=== PATIENT | male | born 1955 | race Two or more races ===

== ENCOUNTER 2021-03-18 21:44 | Inpatient (IN) | payer OTHER ==
[~2021-03-18] VITALS: Ht 177.8 cm; Wt 82.0 kg
[2021-03-19] VITALS (7 sets, daily range): BP systolic 139–157; BP diastolic 70–91
[2021-03-19 00:43] LABS: Basophils # (auto) 0 10 ^3/uL (0-0.2); Basophils % (auto) 0.3 % (0.0-2.0); Eosinophils # (auto) 0 10 ^3/uL (0-0.8); Eosinophils % (auto) 0.7 % (0.0-7.0); Hematocrit 25.2 % (41.0-53.0); Hemoglobin 8.6 g/dL (13.5-17.5); Lymphocytes # (auto) 0.3 10 ^3/uL (0.4-5.4); Lymphocytes % (auto) 4.1 % (10.0-50.0); Mean Corpuscular Hemoglobin 30.5 pg (28.0-32.0); Mean Corpuscular Volume 89.6 fL (80.0-100.0); Monocytes # (auto) 0.3 10 ^3/uL (0-1.3); Monocytes % (auto) 4.8 % (0.0-12.0); Neutrophils # (auto) 6.2 10 ^3/uL (1.6-8.6); Neutrophils % (auto) 90.1 % (37.0-80.0); Nucleated Red Blood Cells % 0.1 %; Red Blood Cells 2.81 10^6/uL (4.5-5.90); Red Cell Distribution Width 14.6 % (11.8-14.3); White Blood Cell 6.9 10^3/uL (4.4-10.8)
[2021-03-19 01:00] LABS: Albumin 3.5 g/dL (3.4-5.0); Calcium 8.5 mg/dL (8.5-10.1)
[2021-03-19 01:29] LABS: BUN/Creatinine Ratio 11.1
[2021-03-19 01:32] LABS: Bilirubin, Total 0.4 mg/dL (0.2-1.0)
[2021-03-19 01:37] LABS: Potassium 5.8 mmol/L (3.5-5.1)
[2021-03-19] MEDS ORDERED: AZITHROMYCIN 500MG/ 250ML 250 ML IV ONE (02:00)
[2021-03-19] MEDS ORDERED: FUROSEMIDE 20 MG/2 ML VIAL IV ONE (02:00)
[2021-03-19] MEDS ORDERED: ALBUTEROL SULF 2.5 MG/0.5ML(0.5%) NEB SOLN NEB ONE (02:00)
[2021-03-19] MEDS ORDERED: InsuLIN REG 1unit/0.01ml Soln (100units/ml) IV ONE ×2 (02:00→20:00)
[2021-03-19] MEDS ORDERED: SODIUM BICARBONATE 8.4% INJ 50ML SYRINGE IV ONE (02:00)
[2021-03-19] MEDS ORDERED: SODIUM ZIRCONIUM CYCL 10 GM PAK PO ONE ×3 (02:00→10:30)
[2021-03-19] MEDS ORDERED: cefTRIAXone 1GM/50ML D5W 50 ML IV ONE (02:00)
[2021-03-19] MEDS ORDERED: DEXTROSE (50%) 50ML SYRG IV ONE ×2 (02:00→20:00)
[2021-03-19] MEDS ORDERED: CALCIUM GLUC 1,000mg/50ml-NS 50 ML IV ONE ×2 (02:00→20:00)
[2021-03-19] MEDS ORDERED: ACETAMINOPHEN 500 MG TAB PO PRN (03:15)
[2021-03-19] MEDS ORDERED: ONDANSETRON HCL 4 MG/2 ML VIAL IV PRN (03:15)
[2021-03-19] MEDS ORDERED: cloNIDine HCL 0.1 MG TAB PO PRN (03:15)
[2021-03-19] MEDS ORDERED: NITROGLYCERIN 0.4 MG SL TAB SL PRN (03:15)
[2021-03-19] MEDS ORDERED: MORPHINE SULFATE INJECTION 2 MG/ML SYRG IV PRN (03:15)
[2021-03-19 04:51] LABS: Potassium 5.6 mmol/L (3.5-5.1)
[2021-03-19] MEDS ORDERED: B-CO-5 PO (06:29)
[2021-03-19] MEDS ORDERED: AMLO-489 PO (06:29)
[2021-03-19 09:10] LABS: Potassium 5.8 mmol/L (3.5-5.1)
[2021-03-19] MEDS ORDERED: amLODIPine BESYLATE 5 MG TAB PO SCH (10:00)
[2021-03-19] MEDS ORDERED: PANTOPRAZOLE 40 MG TAB PO SCH (10:00)
[2021-03-19] MEDS ORDERED: FUROSEMIDE 40 MG/4 ML VIAL IV ONE (10:30)
[2021-03-19] MEDS: cefTRIAXone 1GM/50ML D5W 50 ML IV SCH (11:01)
[2021-03-19] MEDS: DexAMETHasone SOD PHOS 10MG/1ML VIAL INJ IV SCH (11:02)
[2021-03-19] MEDS: ZINC SULFATE 220mg CAP or TAB PO SCH (11:03)
[2021-03-19] MEDS: CHOLECALCIFEROL (VITD3) 2,000 UNIT CAP/TAB PO SCH (11:05)
[2021-03-19] MEDS: ASCORBIC ACID 1,000 MG TAB PO SCH (11:05)
[2021-03-19] MEDS: ENOXAPARIN SOD 40 MG/0.4 ML SYRINGE SC SCH (11:06)
[2021-03-19] MEDS ORDERED: IVERMECTIN 3 MG TAB PO ONE (11:42)
[2021-03-19] MEDS ORDERED: DEXTROSE (50%) 50ML SYRG IV PRN (11:45)
[2021-03-19] MEDS ORDERED: ASPirin-EC 81 mg tab PO ONE (11:45)
[2021-03-19] MEDS: ACCU-CHEK COMFORT CURVE STRIP VI SCH ×3 (12:00→23:58)
[2021-03-19] MEDS: InsuLIN REG 1unit/0.01ml Soln (100units/ml) SC SCH ×2 (13:00→18:00)
[2021-03-19] MEDS: AZITHROMYCIN 500MG/ 250ML 250 ML IV SCH (13:00)
[2021-03-19] MEDS ORDERED: SODIUM BICARBONATE 8.4 % INJ 50ML VIAL IV ONE ×2 (15:00→20:00)
[2021-03-19] MEDS: SODIUM ZIRCONIUM CYCL 10 GM PAK PO SCH ×2 (15:41→21:03)
[2021-03-19 19:27] LABS: Potassium 5.8 mmol/L (3.5-5.1)
[2021-03-19] MEDS: ALBUTEROL SULF HFA 90MCG INH 200DOSE IN PRN ×2 (20:20→23:25)
[2021-03-19] MEDS: ATORVASTATIN 20 MG TAB PO SCH (21:02)
[2021-03-19] MEDS: METOPROLOL TARTRATE 25 MG TAB PO SCH (21:29)
[2021-03-19] MEDS: BUDESONIDE (INHALATION) 180 MCG IH IN SCH (22:00)
[2021-03-19 22:55] LABS: BUN/Creatinine Ratio 11.2; Calcium 8.3 mg/dL (8.5-10.1)
[2021-03-19 22:57] LABS: Potassium 5.7 mmol/L (3.5-5.1)
[2021-03-19] MEDS: TEMAZEPAM 15 MG CAP PO PRN (23:48)
[2021-03-20] MEDS: InsuLIN REG 1unit/0.01ml Soln (100units/ml) SC SCH ×5 (00:07→23:27)
[2021-03-20] MEDS ORDERED: SODIUM BICARBONATE 8.4 % INJ 50ML VIAL IV ONE ×3 (03:45→06:30)
[2021-03-20 05:07] VITALS: BP 130/69
[2021-03-20] MEDS: BUDESONIDE (INHALATION) 180 MCG IH IN SCH ×2 (05:29→22:00)
[2021-03-20] MEDS: ALBUTEROL SULF HFA 90MCG INH 200DOSE IN PRN (05:29)
[2021-03-20] MEDS: SODIUM ZIRCONIUM CYCL 10 GM PAK PO SCH ×2 (06:00→14:00)
[2021-03-20] MEDS: ACCU-CHEK COMFORT CURVE STRIP VI SCH ×4 (06:21→23:16)
[2021-03-20 06:22] LABS: Basophils # (auto) 0 10 ^3/uL (0-0.2); Eosinophils # (auto) 0 10 ^3/uL (0-0.8); Lymphocytes # (auto) 0.2 10 ^3/uL (0.4-5.4); Monocytes # (auto) 0.2 10 ^3/uL (0-1.3); Red Blood Cells 2.56 10^6/uL (4.5-5.90)
[2021-03-20 06:25] LABS: Basophils % (auto) 0.4 % (0.0-2.0); Hematocrit 23.5 % (41.0-53.0); Hemoglobin 7.9 g/dL (13.5-17.5); Lymphocytes % (auto) 3.2 % (10.0-50.0); Mean Corpuscular Hemoglobin 30.8 pg (28.0-32.0); Mean Corpuscular Hgb Conc. 33.5 g/dL (32.0-36.0); Mean Corpuscular Volume 91.7 fL (80.0-100.0); Monocytes % (auto) 2.3 % (0.0-12.0); Neutrophils # (auto) 6.7 10 ^3/uL (1.6-8.6); Neutrophils % (auto) 94.1 % (37.0-80.0); Nucleated Red Blood Cells % 0.1 %; Red Cell Distribution Width 14.4 % (11.8-14.3); White Blood Cell 7.1 10^3/uL (4.4-10.8)
[2021-03-20 06:49] LABS: INR 1.16 (0.9-1.15); Partial Thromboplastin Time 33.6 sec (23.6-33.0)
[2021-03-20] MEDS ORDERED: SODIUM CHL 0.9% 1000 ML BAG XX ONE (07:00)
[2021-03-20 07:02] LABS: Albumin 2.8 g/dL (3.4-5.0); BUN/Creatinine Ratio 11.1; Bilirubin, Total 0.3 mg/dL (0.2-1.0); CRP High Sensitivity 7.55 mg/dL (< 0.3); Calcium 8.2 mg/dL (8.5-10.1); Total Protein 6.3 g/dL (6.4-8.2)
[2021-03-20 08:26] LABS: Potassium 5.9 mmol/L (3.5-5.1)
[2021-03-20 09:00] VITALS: BP 149/72
[2021-03-20] MEDS: cefTRIAXone 1GM/50ML D5W 50 ML IV SCH (09:15)
[2021-03-20] MEDS: DexAMETHasone SOD PHOS 10MG/1ML VIAL INJ IV SCH (09:56)
[2021-03-20] MEDS: AZITHROMYCIN 500MG/ 250ML 250 ML IV SCH (09:58)
[2021-03-20] MEDS: ENOXAPARIN SOD 40 MG/0.4 ML SYRINGE SC SCH (09:58)
[2021-03-20] MEDS: CHOLECALCIFEROL (VITD3) 2,000 UNIT CAP/TAB PO SCH (10:00)
[2021-03-20] MEDS ORDERED: FUROSEMIDE 20 MG/2 ML VIAL IV SCH (10:00)
[2021-03-20] MEDS: ZINC SULFATE 220mg CAP or TAB PO SCH (10:00)
[2021-03-20] MEDS: METOPROLOL TARTRATE 25 MG TAB PO SCH ×2 (10:00→21:55)
[2021-03-20] MEDS: IVERMECTIN 3 MG TAB PO SCH (10:00)
[2021-03-20] MEDS: ASPirin-EC 81 mg tab PO SCH (10:00)
[2021-03-20] MEDS: ASCORBIC ACID 1,000 MG TAB PO SCH (10:00)
[2021-03-20] MEDS ORDERED: REMDESIVIR PER PHARMACY 0 ML IV SCH (11:00)
[2021-03-20 12:58] VITALS: BP 143/75
[2021-03-20] MEDS ORDERED: REMDESIVIR 200 MG in NS 210ml LOADING DOSE ADULT IV ONE (15:00)
[2021-03-20] MEDS: LORazepam 2MG/ML-1ML VIAL IV PRN (16:39)
[2021-03-20 17:00] VITALS: BP 130/77
[2021-03-20] MEDS: FUROSEMIDE 100 MG/10ML VIAL IV SCH (17:43)
[2021-03-20] MEDS ORDERED: EPOETIN ALFA-EPBX 10,000 UNIT/1ML VIAL SC ONE (21:00)
[2021-03-20] MEDS: ATORVASTATIN 20 MG TAB PO SCH (21:53)
[2021-03-20 22:00] VITALS: BP 157/88
[2021-03-21 05:00] VITALS: BP 152/82
[2021-03-21 05:30] LABS: Potassium 4.4 mmol/L (3.5-5.1)
[2021-03-21 05:44] LABS: Albumin 2.6 g/dL (3.4-5.0); BUN/Creatinine Ratio 10.9; Bilirubin, Total 0.5 mg/dL (0.2-1.0); Calcium 7.9 mg/dL (8.5-10.1); Total Protein 5.7 g/dL (6.4-8.2)
[2021-03-21] MEDS: ACCU-CHEK COMFORT CURVE STRIP VI SCH (05:45)
[2021-03-21] MEDS: InsuLIN REG 1unit/0.01ml Soln (100units/ml) SC SCH (06:00)
[2021-03-21] MEDS: FUROSEMIDE 100 MG/10ML VIAL IV SCH ×2 (06:09→18:14)
[2021-03-21 08:00] VITALS: BP 152/82
[2021-03-21] MEDS: BUDESONIDE (INHALATION) 180 MCG IH IN SCH (08:46)
[2021-03-21] MEDS: ALBUTEROL SULF HFA 90MCG INH 200DOSE IN PRN (08:46)
[2021-03-21] MEDS: cefTRIAXone 1GM/50ML D5W 50 ML IV SCH (08:47)
[2021-03-21] MEDS: METOPROLOL TARTRATE 25 MG TAB PO SCH ×2 (08:48→22:34)
[2021-03-21] MEDS: DexAMETHasone SOD PHOS 10MG/1ML VIAL INJ IV SCH (08:48)
[2021-03-21] MEDS: ENOXAPARIN SOD 40 MG/0.4 ML SYRINGE SC SCH (08:49)
[2021-03-21 09:05] VITALS: BP 158/83
[2021-03-21] MEDS: AZITHROMYCIN 500MG/ 250ML 250 ML IV SCH (10:46)
[2021-03-21] MEDS ORDERED: ALBUTEROL SULF 2.5 MG/0.5ML(0.5%) NEB SOLN NEB PRN (12:00)
[2021-03-21 13:24] VITALS: BP 153/84
[2021-03-21] MEDS ORDERED: TPN PER PHARMACY 0 ML IV SCH (14:15)
[2021-03-21 15:18] LABS: Magnesium 2.6 mg/dL (1.6-2.6); Phosphorus 6.5 mg/dL (2.5-4.90)
[2021-03-21] MEDS: ZINC SULFATE 220mg CAP or TAB PO SCH (16:01)
[2021-03-21] MEDS: CHOLECALCIFEROL (VITD3) 2,000 UNIT CAP/TAB PO SCH (16:02)
[2021-03-21] MEDS: IVERMECTIN 3 MG TAB PO SCH (16:02)
[2021-03-21] MEDS: ASCORBIC ACID 1,000 MG TAB PO SCH (16:02)
[2021-03-21] MEDS: ASPirin-EC 81 mg tab PO SCH (16:02)
[2021-03-21] MEDS: SODIUM ZIRCONIUM CYCL 10 GM PAK PO SCH (16:43)
[2021-03-21] MEDS: REMDESIVIR 100mg 100 MG in SODIUM CHL 0.9% 230 ML IV SCH (16:43)
[2021-03-21 17:04] VITALS: BP 134/95
[2021-03-21] MEDS ORDERED: DEXTROSE (50%) 50ML SYRG IV SCH (18:00)
[2021-03-21] MEDS ORDERED: ACCU-CHEK COMFORT CURVE STRIP VI SCH (18:00)
[2021-03-21] MEDS ORDERED: BUDESONIDE (INHALATION) 0.5 MG/2 ML NEB NEB SCH (18:00)
[2021-03-21] MEDS ORDERED: InsuLIN REG 1unit/0.01ml Soln (100units/ml) SC SCH (18:00)
[2021-03-21] MEDS ORDERED: DEXTROSE (50%) 50ML SYRG IV PRN (18:30)
[2021-03-21 22:00] VITALS: BP 149/80
[2021-03-21] MEDS: ATORVASTATIN 20 MG TAB PO SCH (22:33)
[2021-03-22] MEDS: ACCU-CHEK COMFORT CURVE STRIP VI SCH ×4 (00:06→17:40)
[2021-03-22] MEDS: InsuLIN REG 1unit/0.01ml Soln (100units/ml) SC SCH ×4 (00:07→17:41)
[2021-03-22 05:00] VITALS: BP 145/70
[2021-03-22] MEDS: FUROSEMIDE 100 MG/10ML VIAL IV SCH ×2 (05:53→17:40)
[2021-03-22 06:30] LABS: Potassium 4.4 mmol/L (3.5-5.1)
[2021-03-22 06:41] LABS: Albumin 2.5 g/dL (3.4-5.0); BUN/Creatinine Ratio 12.7; Bilirubin, Total 0.4 mg/dL (0.2-1.0); Calcium 8.2 mg/dL (8.5-10.1); Total Protein 5.5 g/dL (6.4-8.2)
[2021-03-22 08:00] VITALS: BP 145/70
[2021-03-22 08:58] VITALS: BP 144/74
[2021-03-22] MEDS: ASPirin-EC 81 mg tab PO SCH (09:24)
[2021-03-22] MEDS: ZINC SULFATE 220mg CAP or TAB PO SCH (09:24)
[2021-03-22] MEDS: DexAMETHasone SOD PHOS 10MG/1ML VIAL INJ IV SCH (09:24)
[2021-03-22] MEDS: cefTRIAXone 1GM/50ML D5W 50 ML IV SCH (09:24)
[2021-03-22] MEDS: ENOXAPARIN SOD 40 MG/0.4 ML SYRINGE SC SCH (09:25)
[2021-03-22] MEDS: ASCORBIC ACID 1,000 MG TAB PO SCH (09:25)
[2021-03-22] MEDS: SODIUM ZIRCONIUM CYCL 10 GM PAK PO SCH (09:25)
[2021-03-22] MEDS: IVERMECTIN 3 MG TAB PO SCH (09:25)
[2021-03-22] MEDS: CHOLECALCIFEROL (VITD3) 2,000 UNIT CAP/TAB PO SCH (09:25)
[2021-03-22] MEDS: METOPROLOL TARTRATE 25 MG TAB PO SCH ×2 (09:26→21:51)
[2021-03-22] MEDS ORDERED: AZITHROMYCIN 250 MG TAB PO ONE (10:15)
[2021-03-22] MEDS: ALBUTEROL SULF HFA 90MCG INH 200DOSE IN PRN (11:47)
[2021-03-22] MEDS: BUDESONIDE (INHALATION) 180 MCG IH IN SCH ×2 (11:48→21:53)
[2021-03-22 12:25] VITALS: BP 136/72
[2021-03-22] MEDS: REMDESIVIR 100mg 100 MG in SODIUM CHL 0.9% 230 ML IV SCH (15:20)
[2021-03-22 17:25] VITALS: BP 143/76
[2021-03-22] MEDS: ATORVASTATIN 20 MG TAB PO SCH (21:51)
[2021-03-22 22:00] VITALS: BP 152/83
[2021-03-23] MEDS: InsuLIN REG 1unit/0.01ml Soln (100units/ml) SC SCH ×4 (00:12→18:36)
[2021-03-23] MEDS: ACCU-CHEK COMFORT CURVE STRIP VI SCH ×4 (00:12→18:28)
[2021-03-23 05:00] VITALS: BP 164/85
[2021-03-23 05:47] LABS: Basophils # (auto) 0 10 ^3/uL (0-0.2); Eosinophils # (auto) 0 10 ^3/uL (0-0.8); Hemoglobin 7.6 g/dL (13.5-17.5); Lymphocytes # (auto) 0.2 10 ^3/uL (0.4-5.4); Lymphocytes % (auto) 2.5 % (10.0-50.0); Monocytes # (auto) 0.2 10 ^3/uL (0-1.3); Monocytes % (auto) 3.3 % (0.0-12.0); Neutrophils # (auto) 6.4 10 ^3/uL (1.6-8.6); Red Cell Distribution Width 14.1 % (11.8-14.3); White Blood Cell 6.8 10^3/uL (4.4-10.8)
[2021-03-23 05:50] LABS: Hematocrit 22.2 % (41.0-53.0); Mean Corpuscular Hgb Conc. 34.3 g/dL (32.0-36.0); Mean Corpuscular Volume 87.4 fL (80.0-100.0); Neutrophils % (auto) 94.2 % (37.0-80.0); Red Blood Cells 2.54 10^6/uL (4.5-5.90)
[2021-03-23] MEDS: FUROSEMIDE 100 MG/10ML VIAL IV SCH ×2 (05:50→18:28)
[2021-03-23 05:55] LABS: Albumin 2.3 g/dL (3.4-5.0); Calcium 7.2 mg/dL (8.5-10.1)
[2021-03-23 06:04] LABS: BUN/Creatinine Ratio 15.1; Bilirubin, Total 0.4 mg/dL (0.2-1.0); CRP High Sensitivity 12.5 mg/dL (< 0.3)
[2021-03-23] MEDS: BUDESONIDE (INHALATION) 180 MCG IH IN SCH ×2 (06:17→19:44)
[2021-03-23] MEDS ORDERED: SODIUM CHL 0.9% 1000 ML BAG XX ONE (07:00)
[2021-03-23 08:30] VITALS: BP 152/83
[2021-03-23] MEDS: ASCORBIC ACID 1,000 MG TAB PO SCH (09:58)
[2021-03-23] MEDS: ZINC SULFATE 220mg CAP or TAB PO SCH (09:58)
[2021-03-23] MEDS: AZITHROMYCIN 250 MG TAB PO SCH (09:58)
[2021-03-23] MEDS: DexAMETHasone SOD PHOS 10MG/1ML VIAL INJ IV SCH (09:59)
[2021-03-23] MEDS: SODIUM ZIRCONIUM CYCL 10 GM PAK PO SCH (10:00)
[2021-03-23] MEDS: METOPROLOL TARTRATE 25 MG TAB PO SCH ×2 (10:00→22:00)
[2021-03-23] MEDS: ENOXAPARIN SOD 40 MG/0.4 ML SYRINGE SC SCH (10:00)
[2021-03-23] MEDS: IVERMECTIN 3 MG TAB PO SCH (10:00)
[2021-03-23] MEDS: ASPirin-EC 81 mg tab PO SCH (10:01)
[2021-03-23] MEDS: CHOLECALCIFEROL (VITD3) 2,000 UNIT CAP/TAB PO SCH (10:01)
[2021-03-23] MEDS: cefTRIAXone 1GM/50ML D5W 50 ML IV SCH (10:01)
[2021-03-23 12:30] VITALS: BP 151/78
[2021-03-23 14:05] LABS: Hepatitis C Antibody Negative (Negative)
[2021-03-23] MEDS: REMDESIVIR 100mg 100 MG in SODIUM CHL 0.9% 230 ML IV SCH (16:15)
[2021-03-23 16:43] VITALS: BP 159/71
[2021-03-23] MEDS: ALBUTEROL SULF HFA 90MCG INH 200DOSE IN PRN (19:44)
[2021-03-23] MEDS ORDERED: EPOETIN ALFA-EPBX 10,000 UNIT/1ML VIAL SC ONE (21:00)
[2021-03-23 22:00] VITALS: BP 138/75
[2021-03-23] MEDS: ATORVASTATIN 20 MG TAB PO SCH (22:00)
[2021-03-23] MEDS: TEMAZEPAM 15 MG CAP PO PRN (23:07)
[2021-03-24] MEDS: ACCU-CHEK COMFORT CURVE STRIP VI SCH ×4 (00:08→18:19)
[2021-03-24] MEDS: InsuLIN REG 1unit/0.01ml Soln (100units/ml) SC SCH ×4 (00:10→18:19)
[2021-03-24 05:00] VITALS: BP 157/78
[2021-03-24] MEDS: BUDESONIDE (INHALATION) 180 MCG IH IN SCH ×2 (05:52→20:19)
[2021-03-24] MEDS: ALBUTEROL SULF HFA 90MCG INH 200DOSE IN PRN ×2 (05:52→20:19)
[2021-03-24 06:10] LABS: Basophils # (auto) 0 10 ^3/uL (0-0.2); Eosinophils # (auto) 0 10 ^3/uL (0-0.8); Hemoglobin 7.2 g/dL (13.5-17.5); Lymphocytes # (auto) 0.2 10 ^3/uL (0.4-5.4); Nucleated Red Blood Cells % 0.1 %; White Blood Cell 5.1 10^3/uL (4.4-10.8)
[2021-03-24 06:14] LABS: Basophils % (auto) 0.1 % (0.0-2.0); Hematocrit 20.4 % (41.0-53.0); Lymphocytes % (auto) 3.9 % (10.0-50.0); Mean Corpuscular Hemoglobin 30.8 pg (28.0-32.0); Mean Corpuscular Hgb Conc. 35.3 g/dL (32.0-36.0); Mean Corpuscular Volume 87.2 fL (80.0-100.0); Monocytes # (auto) 0.3 10 ^3/uL (0-1.3); Monocytes % (auto) 5.3 % (0.0-12.0); Neutrophils # (auto) 4.6 10 ^3/uL (1.6-8.6); Neutrophils % (auto) 90.7 % (37.0-80.0); Red Blood Cells 2.34 10^6/uL (4.5-5.90); Red Cell Distribution Width 13.8 % (11.8-14.3)
[2021-03-24] MEDS: FUROSEMIDE 100 MG/10ML VIAL IV SCH ×2 (06:24→18:20)
[2021-03-24 06:26] LABS: Potassium 3.6 mmol/L (3.5-5.1)
[2021-03-24 06:36] LABS: Albumin 2.2 g/dL (3.4-5.0); BUN/Creatinine Ratio 14.6; Bilirubin, Total 0.3 mg/dL (0.2-1.0); Calcium 7.1 mg/dL (8.5-10.1); Total Protein 4.7 g/dL (6.4-8.2)
[2021-03-24 09:00] VITALS: BP 154/82
[2021-03-24] MEDS: SODIUM ZIRCONIUM CYCL 10 GM PAK PO SCH (10:00)
[2021-03-24] MEDS: cefTRIAXone 1GM/50ML D5W 50 ML IV SCH (11:14)
[2021-03-24] MEDS: ASCORBIC ACID 1,000 MG TAB PO SCH (11:15)
[2021-03-24] MEDS: ZINC SULFATE 220mg CAP or TAB PO SCH (11:15)
[2021-03-24] MEDS: DexAMETHasone SOD PHOS 10MG/1ML VIAL INJ IV SCH (11:15)
[2021-03-24] MEDS: CHOLECALCIFEROL (VITD3) 2,000 UNIT CAP/TAB PO SCH (11:15)
[2021-03-24] MEDS: ASPirin-EC 81 mg tab PO SCH (11:15)
[2021-03-24] MEDS: METOPROLOL TARTRATE 25 MG TAB PO SCH ×2 (11:16→21:10)
[2021-03-24] MEDS: ENOXAPARIN SOD 40 MG/0.4 ML SYRINGE SC SCH (11:16)
[2021-03-24] MEDS: AZITHROMYCIN 250 MG TAB PO SCH (12:16)
[2021-03-24 13:00] VITALS: BP 146/80
[2021-03-24] MEDS: REMDESIVIR 100mg 100 MG in SODIUM CHL 0.9% 230 ML IV SCH (16:17)
[2021-03-24 17:00] VITALS: BP 154/80
[2021-03-24] MEDS: ATORVASTATIN 20 MG TAB PO SCH (21:10)
[2021-03-24] MEDS: TEMAZEPAM 15 MG CAP PO PRN (21:11)
[2021-03-24 22:00] VITALS: BP 153/82
[2021-03-25] MEDS: ACCU-CHEK COMFORT CURVE STRIP VI SCH ×5 (00:27→23:57)
[2021-03-25] MEDS: InsuLIN REG 1unit/0.01ml Soln (100units/ml) SC SCH ×4 (00:31→17:51)
[2021-03-25 05:00] VITALS: BP 158/85
[2021-03-25] MEDS: FUROSEMIDE 100 MG/10ML VIAL IV SCH ×2 (06:31→18:00)
[2021-03-25 06:41] LABS: Basophils # (auto) 0 10 ^3/uL (0-0.2); Basophils % (auto) 0.1 % (0.0-2.0); Eosinophils # (auto) 0 10 ^3/uL (0-0.8); Hemoglobin 7.6 g/dL (13.5-17.5); Lymphocytes # (auto) 0.2 10 ^3/uL (0.4-5.4); Monocytes # (auto) 0.3 10 ^3/uL (0-1.3); Nucleated Red Blood Cells % 0.1 %
[2021-03-25 06:42] LABS: Hematocrit 21.9 % (41.0-53.0); Lymphocytes % (auto) 4.5 % (10.0-50.0); Mean Corpuscular Hemoglobin 30.4 pg (28.0-32.0); Mean Corpuscular Hgb Conc. 34.7 g/dL (32.0-36.0); Mean Corpuscular Volume 87.6 fL (80.0-100.0); Monocytes % (auto) 5.4 % (0.0-12.0); Neutrophils # (auto) 4.5 10 ^3/uL (1.6-8.6); Red Blood Cells 2.51 10^6/uL (4.5-5.90); Red Cell Distribution Width 13.8 % (11.8-14.3)
[2021-03-25 06:46] LABS: BUN/Creatinine Ratio 15.2; Calcium 7.4 mg/dL (8.5-10.1)
[2021-03-25] MEDS ORDERED: SODIUM CHL 0.9% 1000 ML BAG XX ONE (07:00)
[2021-03-25] MEDS: BUDESONIDE (INHALATION) 180 MCG IH IN SCH ×2 (07:15→20:28)
[2021-03-25] MEDS: ALBUTEROL SULF HFA 90MCG INH 200DOSE IN PRN (08:27)
[2021-03-25 09:00] VITALS: BP 146/73
[2021-03-25] MEDS: CHOLECALCIFEROL (VITD3) 2,000 UNIT CAP/TAB PO SCH (10:00)
[2021-03-25] MEDS: ENOXAPARIN SOD 40 MG/0.4 ML SYRINGE SC SCH (10:00)
[2021-03-25] MEDS: SODIUM ZIRCONIUM CYCL 10 GM PAK PO SCH (10:00)
[2021-03-25] MEDS: ASCORBIC ACID 1,000 MG TAB PO SCH (10:00)
[2021-03-25] MEDS: DexAMETHasone SOD PHOS 10MG/1ML VIAL INJ IV SCH (11:20)
[2021-03-25] MEDS: ZINC SULFATE 220mg CAP or TAB PO SCH (11:20)
[2021-03-25] MEDS: METOPROLOL TARTRATE 25 MG TAB PO SCH ×2 (11:21→22:24)
[2021-03-25] MEDS: ASPirin-EC 81 mg tab PO SCH (11:21)
[2021-03-25 13:00] VITALS: BP 159/80
[2021-03-25 17:00] VITALS: BP 153/78
[2021-03-25 22:00] VITALS: BP 152/78
[2021-03-25] MEDS: ATORVASTATIN 20 MG TAB PO SCH (22:24)
[2021-03-26] MEDS: ALBUTEROL SULF HFA 90MCG INH 200DOSE IN PRN ×3 (01:11→20:53)
[2021-03-26 05:00] VITALS: BP 149/80
[2021-03-26 05:44] LABS: Calcium 7.3 mg/dL (8.5-10.1); Potassium 3.9 mmol/L (3.5-5.1)
[2021-03-26 05:46] LABS: BUN/Creatinine Ratio 15.4
[2021-03-26 06:09] LABS: Basophils # (auto) 0 10 ^3/uL (0-0.2); Eosinophils # (auto) 0 10 ^3/uL (0-0.8); Lymphocytes # (auto) 0.3 10 ^3/uL (0.4-5.4); Monocytes # (auto) 0.5 10 ^3/uL (0-1.3); Neutrophils # (auto) 5.7 10 ^3/uL (1.6-8.6); Neutrophils % (auto) 87.1 % (37.0-80.0); Nucleated Red Blood Cells % 0.1 %; White Blood Cell 6.6 10^3/uL (4.4-10.8)
[2021-03-26] MEDS: ACCU-CHEK COMFORT CURVE STRIP VI SCH ×4 (06:09→23:46)
[2021-03-26] MEDS: FUROSEMIDE 100 MG/10ML VIAL IV SCH ×2 (06:09→18:16)
[2021-03-26] MEDS: InsuLIN REG 1unit/0.01ml Soln (100units/ml) SC SCH ×5 (06:11→23:43)
[2021-03-26 06:12] LABS: Basophils % (auto) 0.2 % (0.0-2.0); Hematocrit 20.1 % (41.0-53.0); Lymphocytes % (auto) 4.9 % (10.0-50.0); Mean Corpuscular Hemoglobin 30.6 pg (28.0-32.0); Mean Corpuscular Volume 87.7 fL (80.0-100.0); Monocytes % (auto) 7.8 % (0.0-12.0); Red Blood Cells 2.29 10^6/uL (4.5-5.90); Red Cell Distribution Width 13.9 % (11.8-14.3)
[2021-03-26] MEDS: BUDESONIDE (INHALATION) 180 MCG IH IN SCH ×2 (09:01→18:20)
[2021-03-26] MEDS: ZINC SULFATE 220mg CAP or TAB PO SCH (09:31)
[2021-03-26] MEDS: DexAMETHasone SOD PHOS 10MG/1ML VIAL INJ IV SCH (09:31)
[2021-03-26] MEDS: SODIUM ZIRCONIUM CYCL 10 GM PAK PO SCH (09:31)
[2021-03-26] MEDS: METOPROLOL TARTRATE 25 MG TAB PO SCH ×2 (09:32→23:45)
[2021-03-26] MEDS: CHOLECALCIFEROL (VITD3) 2,000 UNIT CAP/TAB PO SCH (09:33)
[2021-03-26] MEDS: ASCORBIC ACID 1,000 MG TAB PO SCH (09:33)
[2021-03-26] MEDS: ENOXAPARIN SOD 40 MG/0.4 ML SYRINGE SC SCH (10:00)
[2021-03-26 11:38] LABS: Hepatitis B Surface Antibody Negative (Negative)
[2021-03-26 12:12] LABS: Hepatitis A Total Antibody Positive (Negative)
[2021-03-26 13:00] VITALS: BP 155/78
[2021-03-26 14:27] LABS: Hepatitis A Ab IgM Negative
[2021-03-26 17:00] VITALS: BP 145/69
[2021-03-26 22:30] VITALS: BP 148/72
[2021-03-26 23:07] VITALS: BP 148/72
[2021-03-26 23:32] VITALS: BP 146/76
[2021-03-26] MEDS: ATORVASTATIN 20 MG TAB PO SCH (23:46)
[2021-03-27 01:01] VITALS: BP 156/79
[2021-03-27] MEDS: LORazepam 2MG/ML-1ML VIAL IV PRN ×2 (03:29→23:13)
[2021-03-27 05:00] VITALS: BP 159/77
[2021-03-27] MEDS: InsuLIN REG 1unit/0.01ml Soln (100units/ml) SC SCH ×4 (05:30→23:11)
[2021-03-27] MEDS: FUROSEMIDE 100 MG/10ML VIAL IV SCH ×2 (05:32→18:49)
[2021-03-27] MEDS: ACCU-CHEK COMFORT CURVE STRIP VI SCH ×4 (05:32→23:12)
[2021-03-27 05:37] LABS: Basophils # (auto) 0 10 ^3/uL (0-0.2); Basophils % (auto) 0.1 % (0.0-2.0); Eosinophils # (auto) 0 10 ^3/uL (0-0.8); Hematocrit 24.7 % (41.0-53.0); Hemoglobin 8.5 g/dL (13.5-17.5); Lymphocytes # (auto) 0.4 10 ^3/uL (0.4-5.4); Lymphocytes % (auto) 5.3 % (10.0-50.0); Mean Corpuscular Hemoglobin 29.8 pg (28.0-32.0); Mean Corpuscular Hgb Conc. 34.5 g/dL (32.0-36.0); Mean Corpuscular Volume 86.3 fL (80.0-100.0); Monocytes # (auto) 0.7 10 ^3/uL (0-1.3); Monocytes % (auto) 8.4 % (0.0-12.0); Neutrophils % (auto) 86.2 % (37.0-80.0); Nucleated Red Blood Cells % 0.1 %; Red Blood Cells 2.87 10^6/uL (4.5-5.90); Red Cell Distribution Width 13.8 % (11.8-14.3); White Blood Cell 8.1 10^3/uL (4.4-10.8)
[2021-03-27] MEDS: BUDESONIDE (INHALATION) 180 MCG IH IN SCH ×2 (05:50→19:35)
[2021-03-27] MEDS: ALBUTEROL SULF HFA 90MCG INH 200DOSE IN PRN ×2 (05:50→19:35)
[2021-03-27 05:59] LABS: Calcium 7.6 mg/dL (8.5-10.1); Potassium 3.7 mmol/L (3.5-5.1)
[2021-03-27 06:02] LABS: BUN/Creatinine Ratio 16.3
[2021-03-27 09:00] VITALS: BP 162/89
[2021-03-27] MEDS: DexAMETHasone SOD PHOS 10MG/1ML VIAL INJ IV SCH (09:07)
[2021-03-27] MEDS: ZINC SULFATE 220mg CAP or TAB PO SCH (09:08)
[2021-03-27] MEDS: ENOXAPARIN SOD 40 MG/0.4 ML SYRINGE SC SCH (09:09)
[2021-03-27] MEDS: CHOLECALCIFEROL (VITD3) 2,000 UNIT CAP/TAB PO SCH (09:09)
[2021-03-27] MEDS: SODIUM ZIRCONIUM CYCL 10 GM PAK PO SCH (09:09)
[2021-03-27] MEDS: METOPROLOL TARTRATE 25 MG TAB PO SCH ×2 (09:09→22:23)
[2021-03-27] MEDS: ASCORBIC ACID 1,000 MG TAB PO SCH (09:09)
[2021-03-27] MEDS ORDERED: ATOR20TA50 PO (12:44)
[2021-03-27] MEDS ORDERED: CHOL1CAP47 PO (12:44)
[2021-03-27] MEDS ORDERED: ALBUAER3 IN (12:44)
[2021-03-27] MEDS ORDERED: ASCO10003 PO (12:44)
[2021-03-27] MEDS ORDERED: DEXA4TAB90 PO (12:44)
[2021-03-27] MEDS ORDERED: SODI5PAK PO (12:45)
[2021-03-27] MEDS ORDERED: FURO1TAB32 PO (12:45)
[2021-03-27] MEDS ORDERED: ASPI1CHW15 PO (12:45)
[2021-03-27 13:00] VITALS: BP 152/87
[2021-03-27] MEDS ORDERED: HEPARIN SODIUM (PORCINE) 5000 UNITS/ML 1ML VIAL ONE (13:46)
[2021-03-27] MEDS ORDERED: MIDAZOLAM HCL 2MG/2ML 2ml VIAL (1mg/ml) ONE (13:47)
[2021-03-27] MEDS ORDERED: fentaNYL CITRATE 100 MCG/2 ML VL ONE (13:47)
[2021-03-27] MEDS ORDERED: LIDOCAINE 2%HCL (LOCAL ANESTH.) INJ 20ML MDV ONE (13:48)
[2021-03-27 17:00] VITALS: BP 151/82
[2021-03-27 22:00] VITALS: BP 142/66
[2021-03-27] MEDS: ATORVASTATIN 20 MG TAB PO SCH (22:23)
[2021-03-28 04:59] VITALS: BP 155/75
[2021-03-28] MEDS: ALBUTEROL SULF HFA 90MCG INH 200DOSE IN PRN ×2 (05:29→19:16)
[2021-03-28] MEDS: BUDESONIDE (INHALATION) 180 MCG IH IN SCH ×2 (05:29→19:16)
[2021-03-28] MEDS: ACCU-CHEK COMFORT CURVE STRIP VI SCH ×4 (05:53→23:09)
[2021-03-28] MEDS: InsuLIN REG 1unit/0.01ml Soln (100units/ml) SC SCH ×4 (05:59→23:08)
[2021-03-28] MEDS: FUROSEMIDE 100 MG/10ML VIAL IV SCH ×2 (06:06→17:09)
[2021-03-28 09:00] VITALS: BP 154/77
[2021-03-28] MEDS: SODIUM ZIRCONIUM CYCL 10 GM PAK PO SCH (10:00)
[2021-03-28] MEDS: ZINC SULFATE 220mg CAP or TAB PO SCH (10:59)
[2021-03-28] MEDS: DexAMETHasone SOD PHOS 10MG/1ML VIAL INJ IV SCH (10:59)
[2021-03-28] MEDS: ENOXAPARIN SOD 40 MG/0.4 ML SYRINGE SC SCH (11:00)
[2021-03-28] MEDS: METOPROLOL TARTRATE 25 MG TAB PO SCH ×2 (11:00→23:10)
[2021-03-28] MEDS: CHOLECALCIFEROL (VITD3) 2,000 UNIT CAP/TAB PO SCH (11:00)
[2021-03-28] MEDS: ASCORBIC ACID 1,000 MG TAB PO SCH (11:00)
[2021-03-28 13:00] VITALS: BP 157/68
[2021-03-28 17:00] VITALS: BP 152/74
[2021-03-28 22:00] VITALS: BP 152/70
[2021-03-28] MEDS: ATORVASTATIN 20 MG TAB PO SCH (23:10)
[2021-03-28] MEDS: TEMAZEPAM 15 MG CAP PO PRN (23:10)
[2021-03-29] MEDS: LORazepam 2MG/ML-1ML VIAL IV PRN (01:17)
[2021-03-29 05:00] VITALS: BP 153/79
[2021-03-29] MEDS: InsuLIN REG 1unit/0.01ml Soln (100units/ml) SC SCH ×4 (06:46→23:00)
[2021-03-29] MEDS: FUROSEMIDE 100 MG/10ML VIAL IV SCH ×2 (06:57→17:35)
[2021-03-29] MEDS: ACCU-CHEK COMFORT CURVE STRIP VI SCH ×4 (06:58→22:56)
[2021-03-29 08:30] VITALS: BP 151/78
[2021-03-29] MEDS: SODIUM ZIRCONIUM CYCL 10 GM PAK PO SCH (08:55)
[2021-03-29] MEDS: ZINC SULFATE 220mg CAP or TAB PO SCH (09:09)
[2021-03-29] MEDS: DexAMETHasone SOD PHOS 10MG/1ML VIAL INJ IV SCH (09:09)
[2021-03-29] MEDS: ENOXAPARIN SOD 40 MG/0.4 ML SYRINGE SC SCH (09:10)
[2021-03-29] MEDS: CHOLECALCIFEROL (VITD3) 2,000 UNIT CAP/TAB PO SCH (09:10)
[2021-03-29] MEDS: ASCORBIC ACID 1,000 MG TAB PO SCH (09:10)
[2021-03-29] MEDS: METOPROLOL TARTRATE 25 MG TAB PO SCH ×2 (09:10→22:47)
[2021-03-29] MEDS: BUDESONIDE (INHALATION) 180 MCG IH IN SCH ×2 (09:20→21:21)
[2021-03-29] MEDS: ALBUTEROL SULF HFA 90MCG INH 200DOSE IN PRN (09:20)
[2021-03-29 11:44] LABS: Basophils # (auto) 0 10 ^3/uL (0-0.2); Basophils % (auto) 0.1 % (0.0-2.0); Eosinophils # (auto) 0 10 ^3/uL (0-0.8); Eosinophils % (auto) 0.2 % (0.0-7.0); Hemoglobin 8.2 g/dL (13.5-17.5); Lymphocytes # (auto) 0.3 10 ^3/uL (0.4-5.4); Monocytes # (auto) 0.5 10 ^3/uL (0-1.3); Monocytes % (auto) 4.6 % (0.0-12.0); White Blood Cell 10.8 10^3/uL (4.4-10.8)
[2021-03-29 11:46] LABS: Hematocrit 23.9 % (41.0-53.0); Mean Corpuscular Hemoglobin 30.1 pg (28.0-32.0); Mean Corpuscular Hgb Conc. 34.2 g/dL (32.0-36.0); Neutrophils % (auto) 92.1 % (37.0-80.0); Red Blood Cells 2.72 10^6/uL (4.5-5.90); Red Cell Distribution Width 14.1 % (11.8-14.3)
[2021-03-29 12:00] LABS: BUN/Creatinine Ratio 14.5; Calcium 7.3 mg/dL (8.5-10.1); Potassium 4.1 mmol/L (3.5-5.1)
[2021-03-29 12:30] VITALS: BP 163/78
[2021-03-29 17:00] VITALS: BP 139/76
[2021-03-29] MEDS ORDERED: InsuLIN REG 1unit/0.01ml Soln (100units/ml) IV ONE (17:15)
[2021-03-29 22:00] VITALS: BP 153/79
[2021-03-29] MEDS: ATORVASTATIN 20 MG TAB PO SCH (22:46)
[2021-03-29] MEDS: TEMAZEPAM 15 MG CAP PO PRN (22:47)
[2021-03-30] MEDS: LORazepam 2MG/ML-1ML VIAL IV PRN (01:16)
[2021-03-30 05:00] VITALS: BP 156/88
[2021-03-30] MEDS: BUDESONIDE (INHALATION) 180 MCG IH IN SCH ×2 (06:29→19:02)
[2021-03-30] MEDS: ALBUTEROL SULF HFA 90MCG INH 200DOSE IN PRN ×2 (06:29→19:48)
[2021-03-30] MEDS: FUROSEMIDE 100 MG/10ML VIAL IV SCH ×2 (06:36→18:30)
[2021-03-30] MEDS: ACCU-CHEK COMFORT CURVE STRIP VI SCH ×3 (06:36→18:21)
[2021-03-30] MEDS: InsuLIN REG 1unit/0.01ml Soln (100units/ml) SC SCH ×3 (06:37→18:24)
[2021-03-30 09:00] VITALS: BP 149/79
[2021-03-30] MEDS: ZINC SULFATE 220mg CAP or TAB PO SCH (11:41)
[2021-03-30] MEDS: SODIUM ZIRCONIUM CYCL 10 GM PAK PO SCH (11:41)
[2021-03-30] MEDS: ASCORBIC ACID 1,000 MG TAB PO SCH (11:42)
[2021-03-30] MEDS: ENOXAPARIN SOD 40 MG/0.4 ML SYRINGE SC SCH (11:42)
[2021-03-30] MEDS: METOPROLOL TARTRATE 25 MG TAB PO SCH ×2 (11:42→22:58)
[2021-03-30] MEDS: CHOLECALCIFEROL (VITD3) 2,000 UNIT CAP/TAB PO SCH (11:42)
[2021-03-30 17:00] VITALS: BP 146/73
[2021-03-30 22:00] VITALS: BP 146/77
[2021-03-30] MEDS: ATORVASTATIN 20 MG TAB PO SCH (22:57)
[2021-03-31] MEDS: ACCU-CHEK COMFORT CURVE STRIP VI SCH ×4 (00:38→17:33)
[2021-03-31] MEDS: InsuLIN REG 1unit/0.01ml Soln (100units/ml) SC SCH ×4 (00:40→17:42)
[2021-03-31 05:00] VITALS: BP 153/87
[2021-03-31] MEDS: BUDESONIDE (INHALATION) 180 MCG IH IN SCH ×2 (05:51→21:27)
[2021-03-31] MEDS: ALBUTEROL SULF HFA 90MCG INH 200DOSE IN PRN (05:51)
[2021-03-31] MEDS: FUROSEMIDE 100 MG/10ML VIAL IV SCH ×2 (06:04→17:59)
[2021-03-31 06:51] LABS: Potassium 3.9 mmol/L (3.5-5.1)
[2021-03-31 06:59] LABS: BUN/Creatinine Ratio 15.2; Calcium 7.5 mg/dL (8.5-10.1)
[2021-03-31 09:00] VITALS: BP 143/76
[2021-03-31] MEDS: METOPROLOL TARTRATE 25 MG TAB PO SCH ×2 (09:03→22:09)
[2021-03-31] MEDS: ASCORBIC ACID 1,000 MG TAB PO SCH (09:03)
[2021-03-31] MEDS: ZINC SULFATE 220mg CAP or TAB PO SCH (09:03)
[2021-03-31] MEDS: CHOLECALCIFEROL (VITD3) 2,000 UNIT CAP/TAB PO SCH (09:03)
[2021-03-31] MEDS ORDERED: SODIUM CHL 0.9% 1000 ML BAG XX ONE (10:00)
[2021-03-31 13:00] VITALS: BP 139/78
[2021-03-31 16:48] VITALS: BP 139/71
[2021-03-31] MEDS ORDERED: EPOETIN ALFA-EPBX 10,000 UNIT/1ML VIAL SC ONE (21:00)
[2021-03-31 22:00] VITALS: BP 138/70
[2021-03-31] MEDS: ATORVASTATIN 20 MG TAB PO SCH (22:09)
[2021-03-31] MEDS: TEMAZEPAM 15 MG CAP PO PRN (22:10)
[2021-04-01] MEDS: ACCU-CHEK COMFORT CURVE STRIP VI SCH ×4 (00:03→17:36)
[2021-04-01] MEDS: InsuLIN REG 1unit/0.01ml Soln (100units/ml) SC SCH ×4 (00:06→17:37)
[2021-04-01 05:00] VITALS: BP 154/69
[2021-04-01] MEDS: FUROSEMIDE 100 MG/10ML VIAL IV SCH ×2 (06:12→17:36)
[2021-04-01 06:22] LABS: BUN/Creatinine Ratio 13.2; Calcium 7.7 mg/dL (8.5-10.1); Potassium 4.1 mmol/L (3.5-5.1)
[2021-04-01] MEDS: ALBUTEROL SULF HFA 90MCG INH 200DOSE IN PRN (06:41)
[2021-04-01] MEDS: BUDESONIDE (INHALATION) 180 MCG IH IN SCH ×2 (06:41→22:53)
[2021-04-01 09:00] VITALS: BP 150/77
[2021-04-01] MEDS: METOPROLOL TARTRATE 25 MG TAB PO SCH ×2 (09:54→21:22)
[2021-04-01] MEDS: ASCORBIC ACID 1,000 MG TAB PO SCH (09:54)
[2021-04-01] MEDS: ZINC SULFATE 220mg CAP or TAB PO SCH (09:54)
[2021-04-01] MEDS: CHOLECALCIFEROL (VITD3) 2,000 UNIT CAP/TAB PO SCH (09:55)
[2021-04-01 13:00] VITALS: BP 146/77
[2021-04-01 16:53] VITALS: BP 127/66
[2021-04-01] MEDS: ATORVASTATIN 20 MG TAB PO SCH (21:22)
[2021-04-01 21:55] VITALS: BP 156/75
[2021-04-02] MEDS: InsuLIN REG 1unit/0.01ml Soln (100units/ml) SC SCH ×3 (00:23→11:58)
[2021-04-02] MEDS: TEMAZEPAM 15 MG CAP PO PRN (00:24)
[2021-04-02] MEDS: ACCU-CHEK COMFORT CURVE STRIP VI SCH ×3 (00:24→11:58)
[2021-04-02] MEDS: ALBUTEROL SULF HFA 90MCG INH 200DOSE IN PRN ×2 (00:41→09:03)
[2021-04-02 05:00] VITALS: BP 134/75
[2021-04-02 05:51] LABS: Calcium 7.9 mg/dL (8.5-10.1); Potassium 4.2 mmol/L (3.5-5.1)
[2021-04-02] MEDS: FUROSEMIDE 100 MG/10ML VIAL IV SCH (06:25)
[2021-04-02 09:00] VITALS: BP 154/76
[2021-04-02] MEDS: BUDESONIDE (INHALATION) 180 MCG IH IN SCH (09:03)
[2021-04-02] MEDS: ASCORBIC ACID 1,000 MG TAB PO SCH (09:19)
[2021-04-02] MEDS: ZINC SULFATE 220mg CAP or TAB PO SCH (09:19)
[2021-04-02] MEDS: CHOLECALCIFEROL (VITD3) 2,000 UNIT CAP/TAB PO SCH (09:20)
[2021-04-02] MEDS: METOPROLOL TARTRATE 25 MG TAB PO SCH (10:00)
[2021-04-02 12:30] VITALS: BP 133/68
[2021-04-02 17:00] VITALS: BP 123/62
== END 2021-04-02 17:35 | disposition home health service (06) | DRG 871 ==
LOC: ER 21:47 → TELE 03-19 03:06 → TELE-EAST 03-19 05:20
PROVIDERS: ADMIT Nurse Practitioner; ATTEND Internal Medicine Pulmonary Disease
PROC: 5A09457 Assistance with Respiratory Ventilation, 24-96 Consecutive Hours, Continuous Positive Airway Pressure (ICD-10-PCS; 2021-03-19)
PROC: XW033E5 Introduction of Remdesivir Anti-infective into Peripheral Vein, Percutaneous Approach, New Technology Group 5 (ICD-10-PCS; 2021-03-20)
PROC: 06HY33Z Insertion of Infusion Device into Lower Vein, Percutaneous Approach (ICD-10-PCS; 2021-03-20)
PROC: 5A1D70Z Performance of Urinary Filtration, Intermittent, Less than 6 Hours Per Day (ICD-10-PCS; 2021-03-20)
PROC: 5A1D70Z Performance of Urinary Filtration, Intermittent, Less than 6 Hours Per Day (ICD-10-PCS; 2021-03-23)
PROC: 5A1D70Z Performance of Urinary Filtration, Intermittent, Less than 6 Hours Per Day (ICD-10-PCS; 2021-03-25)
PROC: 30233N1 Transfusion of Nonautologous Red Blood Cells into Peripheral Vein, Percutaneous Approach (ICD-10-PCS; 2021-03-26)
PROC: 0JH63XZ Insertion of Tunneled Vascular Access Device into Chest Subcutaneous Tissue and Fascia, Percutaneous Approach (ICD-10-PCS; principal; 2021-03-27)
PROC: B543ZZA Ultrasonography of Right Jugular Veins, Guidance (ICD-10-PCS; 2021-03-27)
PROC: 02H633Z Insertion of Infusion Device into Right Atrium, Percutaneous Approach (ICD-10-PCS; 2021-03-27)
PROC: B518YZA Fluoroscopy of Superior Vena Cava using Other Contrast, Guidance (ICD-10-PCS; 2021-03-27)
PROC: 5A1D70Z Performance of Urinary Filtration, Intermittent, Less than 6 Hours Per Day (ICD-10-PCS; 2021-03-28)
PROC: 5A1D70Z Performance of Urinary Filtration, Intermittent, Less than 6 Hours Per Day (ICD-10-PCS; 2021-03-31)
PROC: 5A1D70Z Performance of Urinary Filtration, Intermittent, Less than 6 Hours Per Day (ICD-10-PCS; 2021-04-02)
DX: A41.89 Other specified sepsis (principal); U07.1 COVID-19; I50.43 Acute on chronic combined systolic (congestive) and diastolic (congestive) heart failure; J12.82 Pneumonia due to coronavirus disease 2019; J96.01 Acute respiratory failure with hypoxia; N18.6 End stage renal disease; I21.A1 Myocardial infarction type 2; J98.11 Atelectasis; D62 Acute posthemorrhagic anemia; N17.9 Acute kidney failure, unspecified; I13.2 Hypertensive heart and chronic kidney disease with heart failure and with stage 5 chronic kidney disease, or end stage renal disease; D63.1 Anemia in chronic kidney disease; E87.5 Hyperkalemia; Z99.2 Dependence on renal dialysis
CPT/HCPCS: 36415; 36558; 36600; 71045; 76000; 76942; 77001; 80048; 80053; 80061; 82306; 82728; 82805; 82962; 83036; 83605; 83615; 83735; 83880; 84100; 84132; 84484; 85025; 85379; 85610; 85730; 86141; 86704; 86706; 86708; 86709; 86803; 86850; 86900; 86901; 86920; 87040; 87340; 87426; 90935; 93005; 93306; 93970; 94640; 94660; 96365; 96375; 97110; 97116; 97163; 97530; 99152; 99153; 99291; G0378; J0696; J1100; J1642; J1815; J2250